=== PATIENT | female | born 1955 | race Caucasian/White ===

== ENCOUNTER 2017-07-29 07:47 | Outpatient (CLI) | payer OTHER ==
[~2017-07-29] VITALS: Ht 162.6 cm; Wt 68.4 kg
[~2017-07-29 07:47] MED LIST: ASPIRIN 81M81 MG/TA2 PO; ESTRACE 1MG1 MG/TAB PO; MULTI VITAMINS1 TAB PO; OMEGA-3 FISH1000 MG PO; PRINIVIL2.5 MG PO; VITAMIN D31000 IU PO
[2017-07-29 08:17] VITALS: BP 145/84; PULSE 61
[2017-07-29 08:50] VITALS: BP 134/85; PULSE 58; PULSE 61
[2017-07-29 09:05] VITALS: BP 129/67; PULSE 67
[2017-07-29 09:35] VITALS: BP 118/73; PULSE 67
[2017-07-29 09:50] VITALS: BP 118/74; PULSE 68
[2017-07-29 11:10] LABS: CEREBROSPINAL TUBE #4
[2017-07-29 11:11] LABS: CSF APPEARANCE CLEAR; CSF COLOR COLORLESS
[2017-08-02 09:09] LABS: ALBUMIN CSF 20.3 mg/dL (<=27.0); CSF IGG/ALBUMIN 0.13 (<=0.21); CSF,IGG 2.6 mg/dL (<=8.1)
[2017-08-02 09:34] LABS: CSF SYNTHESIS RATE 2.43 mg/24 h (<=12); CSF-IGG INDEX 0.65 (<=0.85); IGG/ALBUMIN SERUM 0.2 (<=0.40)
== END 2017-07-29 11:54 | disposition home or self-care (01) ==
LOC: COL.RAD 07:47
PROVIDERS: Psychiatry & Neurology Neurology
DX: G37.9 Demyelinating disease of central nervous system, unspecified (principal); R20.0 Anesthesia of skin